=== PATIENT | female | born 1965 | race African-American/Black ===

== ENCOUNTER 2017-07-22 03:43 | Emergency (ER) | payer MEDICARE, OTHER ==
[2017-07-22] MEDS ORDERED: AMOXicillin 250 MG CAP ONE (04:11)
[2017-07-22] MEDS ORDERED: Acetaminophen/Codeine 30-300mg Tablet ONE (04:11)
== END 2017-07-22 04:15 | disposition home or self-care (01) ==
LOC: NAV ERS 03:43
DX: K02.9 Dental caries, unspecified (principal); E03.9 Hypothyroidism, unspecified; I10 Essential (primary) hypertension; J45.909 Unspecified asthma, uncomplicated; Z79.899 Other long term (current) drug therapy
CPT/HCPCS: 99283

== ENCOUNTER 2021-08-25 16:49 | Emergency (ER) | payer MEDICARE, MEDICAID ==
[2021-08-25] MEDS ORDERED: Ketorolac Tromethamine 30 MG/ML VIAL ONE (17:31)
[2021-08-25] MEDS ORDERED: Prochlorperazine 10 MG/2 ML VIAL ONE (17:31)
[2021-08-25] MEDS ORDERED: diphenhydrAMINE 50 MG/ML VIAL ONE (17:31)
[2021-08-25] MEDS ORDERED: Sodium Chloride 0.9% 1,000 ML ONE (17:31)
== END 2021-08-25 18:35 | disposition home or self-care (01) ==
LOC: NAV ERS 16:49
DX: R51.9 Headache, unspecified (principal); E03.9 Hypothyroidism, unspecified; I10 Essential (primary) hypertension; J45.909 Unspecified asthma, uncomplicated; Z79.899 Other long term (current) drug therapy
CPT/HCPCS: 96365; 96375; J0780; J1200; J1885; J7050

== ENCOUNTER 2022-09-03 17:11 | Emergency (ER) | payer MEDICARE, MEDICAID ==
[2022-09-03] MEDS ORDERED: traMADol HCl 50 MG TAB ONE (18:01)
== END 2022-09-03 18:20 | disposition home or self-care (01) ==
LOC: NAV ERS 17:11
DX: S83.411A Sprain of medial collateral ligament of right knee, initial encounter (principal); M17.11 Unilateral primary osteoarthritis, right knee; E03.9 Hypothyroidism, unspecified; I10 Essential (primary) hypertension; X50.1XXA Overexertion from prolonged static or awkward postures, initial encounter; Z79.899 Other long term (current) drug therapy